=== PATIENT | female | born 1935 | race Caucasian/White ===

== ENCOUNTER → 2016-10-15 | Outpatient (CLI) | payer BC ==
--- NOTE | 2016-10-15 14:06 | MA ---
Screening Digital Mammogram With iCAD Analysis Clinical Indications: Routine screening. 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 Technique: Standard cephalocaudal projections were obtained. Digital breast tomosynthesis was perform ed in the MLO projection with reconstruction at 1.0-mm slice thickness and composite MLO views recons tructed. Skin markers were placed on surgical scars bilaterally. [facility]. Comparison: September 2015, August 2014, August 2013, August 2012, October 2011, October 2010, October 2009, October 2008. Breast density: Type B; Scattered fibroglandular densities. Findings: CAD was reviewed. Architectural change at the right breast lumpectomy site is stable. No ma sses, suspicious calcifications or secondary signs of malignancy are seen. There has been no signific ant change in the appearance of either breast. Vascular calcifications are noted. Impression: Benign post lumpectomy mammography. BI-RADS 2. Recommendation: Routine mammographic screening in one year as long as physical examination is negativ [facility] to the patient. Negative mammography should not preclude additional workup of a clinically suspicious finding. The patient's information is entered into a reminder system with a target due date for her next mammo gram.
== END ==
LOC: FIMAGING 10:27
DX: Z12.31 Encounter for screening mammogram for malignant neoplasm of breast (principal); Z85.3 Personal history of malignant neoplasm of breast
CPT/HCPCS: G0202

== ENCOUNTER → 2017-10-24 | Outpatient (CLI) | payer BC | LOC: FIMAGING 09:12 | PROVIDERS: ATTEND Internal Medicine | DX: Z12.31 Encounter for screening mammogram for malignant neoplasm of breast (principal); Z85.3 Personal history of malignant neoplasm of breast ==

== ENCOUNTER → 2018-08-25 | Outpatient (CLI) | payer BC | LOC: BMCIMAGING 14:15 | PROVIDERS: ATTEND Internal Medicine | DX: I51.7 Cardiomegaly (principal) ==

== ENCOUNTER 2018-10-06 08:37 | Observation (INO) | payer BC ==
[2018-10-06] MEDS ORDERED: NS 1,000 ML IV ONE (08:39)
[2018-10-06 09:17] LABS: PLATELET COUNT 144 10^3/uL (150-400)
[2018-10-06 09:29] LABS: INR 1.25 (0.83-1.16); PROTIME(PATIENT) 15.9 SEC (12.0-15.0)
--- NOTE | 2018-10-06 11:16 | CPEKG ---
Test Reason : OPEN Blood Pressure : / mmHG Vent. Rate : 133 BPM Atrial Rate : 114 BPM P-R Int : 132 ms QRS Dur : 081 ms QT Int : 323 ms P-R-T Axes : 000 080 -54 degrees QTc Int : 481 ms Atrial fibrillation Repolarization abnormality, prob rate related Confirmed by Kd Queen ([id number]) on 10/06/2018 11:15:35 AM Referred By: Confirmed By:Kd Queen
--- NOTE | 2018-10-06 11:27 | PDGENHP ---
History & Physical Chief Complaint: Atrial fibrillation with RVR History of Present Illness: Symptomatic atrial fibrillation rapid ventricular rates that are difficult to control. She has a Biotronik dual-chamber PPM. Relevant Physical Exam: General: A&Ox4, no apparent distress. Respiratory: CTA. Cardiac: Irregularly irregular, S1, S2. Extremities: Pulses 2+ bilaterally, no edema Cardiorespiratory Assessment: Proceed with AV node ablation as planned for today. She and her daughter verbalize understanding regarding the fact that she will be pacemaker dependent following this procedure.
[2018-10-06] MEDS ORDERED: PROMETHAZINE HCL 25 MG/ML INJ IVP PRN (12:49)
[2018-10-06] MEDS ORDERED: HYDROCODONE/APAP 5/325 TAB PO PRN (12:49)
[2018-10-06] MEDS ORDERED: ONDANSETRON 4 MG/2 ML VIAL IVP PRN (12:49)
[2018-10-06] MEDS ORDERED: fentaNYL 100 MCG/2 ML INJ IVP PRN (12:49)
[2018-10-06] MEDS ORDERED: ACETAMINOPHEN 500 MG TAB PO PRN (12:49)
[2018-10-06] MEDS ORDERED: NALOXONE HCL 0.4 MG/ML INJ IVP PRN (12:49)
--- NOTE | 2018-10-06 12:49 | PDANEPAE ---
ANE Past Medical History - Cardiovascular History Hx Hypertension: No Hx Arrhythmias: Yes Hx Coronary Artery / Peripheral Vascular Disease: No Hx Palpitations: Yes - Pulmonary History Hx COPD: No Hx Asthma/Reactive Airway Disease: No Hx Recent Upper Respiratory Infection: No Hx Oxygen in Use at Home: No Hx Sleep Apnea: Yes - Endocrine History Hx Diabetes: No Obesity: mild ANE Review of Systems Review of Systems: - Pacemaker Date Pacemaker Last Checked: 06/09/2016 ANE Patient History - Allergies Allergies/Adverse Reactions: No Known Allergies Allergy (Verified 09/29/18 10:57) - Home Medications Home medications: home medication list seen and reviewed Home Medications: Multivitamins [Multivitamin (*)] 1 each PO DAILY 04/17/16 [Last Taken 10/04/18 08:00] Herbals/Supplements -Info Only 1 ea PO DAILY 06/08/16 [Last Taken 10/04/18 08:00 ] [place]-3 Fatty Acids [Fish Oil 1000 mg (*)] 1,000 mg PO DAILY 06/08/16 [Last Taken 10/04/18 08:00] Ascorbic Acid [Vitamin C 500 mg (*)] 500 mg PO DAILY 09/29/18 [Last Taken 08:00] Cyanocobalamin [Vitamin B12 (*)] 50 mcg PO DAILY 09/29/18 [Last Taken 10/04/18 08:00] Dabigatran Etexilate Mesyl [Pradaxa 150 MG (*)] 150 mg PO BID 09/29/18 [Last Taken 10/04/18 08:00] Metoprolol Succinate 75 mg PO DAILY 09/29/18 [Last Taken 10/04/18 08:00] - NPO status NPO Status: no food or drink >8 hours - Anes Hx Anes Hx: no prior problems - Smoking Hx Smoking Status: Never smoked ANE Labs/Vital Signs - Labs Result Diagrams: 10/06/18 09:00 10/06/18 09:00 - Vital Signs Height: 157 cm Weight: 59 kg ANE Physical Exam - Airway Neck exam: FROM Mallampati Score: Class 2 Mouth exam: normal dental/mouth exam - Pulmonary Pulmonary: no respiratory distress, no rales or rhonchi, clear to auscultation - Cardiovascular Cardiovascular: irregularly irregular, tachycardia - ASA Status ASA Status: III ANE Anesthesia Plan Anesthesia Plan: MAC
[2018-10-06] MEDS ORDERED: fentaNYL 100 MCG/2 ML INJ ONE (12:50)
[2018-10-06] MEDS ORDERED: PROPOFOL 200 MG/20 ML VIAL ONE (12:50)
[2018-10-06] MEDS ORDERED: LIDOCAINE 1% 300 MG/30 ML SDV ONE (13:00)
[2018-10-06] MEDS ORDERED: HEPARIN 10,000 UNIT/10 ML MDV (1,000 UNIT/ML) ONE (13:00)
[2018-10-06] MEDS ORDERED: BUPIVACAINE 0.75% 10 ML SDV ONE (13:01)
[2018-10-06] MEDS ORDERED: GLYCOPYRROLATE 0.2 MG/1 ML VIAL ONE (13:48)
--- NOTE | 2018-10-06 14:13 | EPPROC ---
Electrophysiology Procedure Note: CATHETER MEDIATED ABLATION OF THE AV JUNCTION Procedures performed: 57798 AV node ablation Fluoroscopy INDICATION: Atrial fibrillation, unable to rate control despite maximally tolerated medical therapy Previously placed pacemaker in 2016 Catheters & Anesthesia: The patient arrived in the Electrophysiology Laboratory in the fasting state. Sedation was administered by Dr. Ryder Babb. The right groin and left groin area were prepped and draped in the usual sterile manner. Appropriate non-invasive blood pressure, pulse oximetry and end-tidal CO2 monitoring was established. All catheters were placed percutaneously using the modified Seldinger technique and advanced into position under fluoroscopic guidance). At baseline the patient was noted to be in atrial fibrillation with a mean ventricular rate of 110 bpm. A #7 Haitian deflectable quadrapolar electrode catheter (2mm-5mm-2mm spacing) with 8 mm tip electrode was advanced to the right atrium. RF applications were delivered to the area of the compact AV node, fast AV pardeep pathway and midseptal tricuspid annulus. Cessation of pacing revealed that there was no escape rhythm while pacing at 30 ppm (with glycopyrolate 0.2 mg) Pacemaker implantation was done previously. The pacemaker was programmed to a lower rate of 80 ppm to reduce the risk of sudden associated with torsades de pointes. The lower rate will gradually be reduced to 60 ppm after 1 month . Fluoroscopically pacemaker lead positions were unchanged after procedure Pacemaker thresholds and impedances were unchanged after the procedure The catheters were removed. The patient was transferred to the cardiovascular holding area in stable condition. Vascular access sheaths will be removed in the holding area after 30 min of wait time. There were no apparent complications. CONCLUSIONS: 1. Atrial fibrillation with rapid ventricular response. 2. 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 3. No escape rhythm. 4. No complications. Patient Problems: Problems Problem Status Onset Epistaxis Acute Over-anticoagulated Acute Periorbital ecchymosis of right eye Acute
--- NOTE | 2018-10-06 14:32 | POSTANESTH ---
Post Anesthetic Evaluation Cardiovascular Status: Other, See Comment (Now paced at about 80/min and stable. ) Respiratory Status: Normal, Stable, Similar to Pre-op Cond. Level of Consciousness/Mental Status: Can Participate in Eval, Mildly Sleepy, Arousable Pain Control: Adequate, Prn Tx Ordered Nausea/Vomiting Control: Adequate, Prn Tx Ordered Complications Possibly Related to Anesthesia: None Noted
[2018-10-06] MEDS ORDERED: amLODIPine BESYLATE 5 MG TAB ONE (15:50)
[2018-10-06] MEDS: DABIGATRAN ETEXILATE MESYL 150 MG CAP PO SCH (21:03)
[2018-10-07 04:22] LABS: PLATELET COUNT 133 10^3/uL (150-400)
[2018-10-07 07:39] VITALS: BP 156/87
[2018-10-07] MEDS ORDERED: OMEGA-3 FATTY ACIDS 1,000 MG CAP PO SCH (09:00)
[2018-10-07] MEDS ORDERED: Herbals/Supplements -Info Only PO SCH (09:00)
[2018-10-07] MEDS ORDERED: MULTIVITAMINS 1 EACH TAB PO SCH (09:00)
[2018-10-07] MEDS ORDERED: CYANO/VITAMIN B12 100 MCG TAB PO SCH (09:00)
[2018-10-07] MEDS ORDERED: ASCORBIC ACID 500 MG TAB PO SCH (09:00)
[2018-10-07] MEDS: DABIGATRAN ETEXILATE MESYL 150 MG CAP PO SCH (10:01)
--- NOTE | 2018-10-07 10:59 | CPEKG ---
Test Reason : OPEN Blood Pressure : / mmHG Vent. Rate : 082 BPM Atrial Rate : 088 BPM P-R Int : 174 ms QRS Dur : 133 ms QT Int : 453 ms P-R-T Axes : 000 -80 097 degrees QTc Int : 529 ms Ventricular-paced rhythm Confirmed by Kd Queen ([id number]) on 10/07/2018 10:59:24 AM Referred By: Confirmed By:Kd Queen
--- NOTE | 2018-10-07 11:03 | CPEKG ---
Test Reason : OPEN Blood Pressure : / mmHG Vent. Rate : 087 BPM Atrial Rate : 083 BPM P-R Int : 078 ms QRS Dur : 130 ms QT Int : 441 ms P-R-T Axes : -36 -81 093 degrees QTc Int : 531 ms ventricular-paced rhythm Confirmed by Kd Queen ([id number]) on 10/07/2018 11:03:18 AM Referred By: Confirmed By:Kd Queen
--- NOTE | 2018-10-07 11:35 | ECHO ---
[email or web address] [address] [address] Main: [phone] Fax: Transthoracic Echocardiogram Name: MARRY BROWN MR#: [id number] Study Date: 10/07/2018 Study Time: 10:30 AM Date of : 1935 Age: 82 year(s) Height: 157.5 cm (62 in.) Weight: 58.97 kg (130 lb.) BSA: 1.59 m2 Gender: Female Examination: Echo Indication: F/U post EP study Image Quality: Adequate Contrast: Requested by: Aleks Pinon BP: 156 mmHg/87 mmHg Heart Rate: Rhythm: Indication: F/U post EP study Procedure Staff Day Treatment Clinician/Art Therapist: Esme Ness RDCS Reading Physician: Ryder Nieves MD Requesting Provider: Conclusions: Mild concentric LV hypertrophy. Global hypercontractility of the left ventricle. EF is 75 %. Diastolic dysfunction is present. . There is a pacemaker lead noted in the right ventricle. The left atrium is severely dilated. The right atrium is severely dilated. Mild to moderate mitral regurgitation. Moderate tricuspid regurgitation is present. Measurements: Chambers Valvular Assessment AV/MV Valvular Assessment TV/PV Normal Normal Normal Name Value Range Name Value Range Name Value Range Ao Patricia (MM): 3.3 cm (2.2 cm-3.7 AV Vmax: 1.22 m/s (1 m/s-1.7 TR Vmax: 2.82 mm/s ( - ) cm) m/s) TR PGmax: 32 mmHg ( - ) LVDd (2D): 3.4 cm (3.9 cm-5.3 AV meanP mmHg ( - ) syst. PAP: 37 mmHg ( - ) cm) MV E Vmax: 1.44 m/s ( - ) LVEF (BP): 75 % (>=55 %) MV A Vmax: 0.32 m/s ( - ) MV E/A: 4.50 ( - ) Continued Measurements: Chambers Valvular Assessment AV/MV Valvular Assessment TV/PV Name Value Name Value Name Value LADs: 4.2 cm MV E' Septal: 0.07 m/s CVP (est.): 5 mmHg LADs Lon.7 cm MV E/E' Septal: 22.10 LA Area: 26.3 cm2 MV E/E' Lateral: 17.80 LA Volume: 88 ml Patient: MARRY BROWN Study Date: 10/07/2018 Page 1 of 2 10:30 AM LA Volume Index: 55.3 ml/m2 Additional Vessels Name Value Ao Ascendin.4 cm Inferior Vena Cava: 2.5 cm Findings: Left Ventricle: Normal size left ventricle. Mild concentric LV hypertrophy. Global hypercontractility of the left ventricle. EF is 75 %. No regional wall motion abnormality. Diastolic dysfunction is present. . Right Ventricle: Normal size right ventricle. There is a pacemaker lead noted in the right ventricle. Left Atrium: The left atrium is severely dilated. Right Atrium: The right atrium is severely dilated. Mitral Valve: Moderate-severe mitral annular calcification. Mild to moderate mitral regurgitation. Aortic Valve: The aortic valve is normal in appearance and function. The aortic valve is tri-leaflet. Trivial aortic valve regurgitation. Tricuspid Valve: The tricuspid valve is normal in appearance and function. Moderate tricuspid regurgitation is present. Pulmonic Valve: The pulmonic valve is normal in appearance and function. Trivial pulmonic valve regurgitation. Aorta: The aorta is normal. Pericardium: No pericardial effusion. There is pericardial fat. (No Signature Object) Patient: MARRY BROWN Study Date: 10/07/2018 Page 2 of 2 10:30 AM D:_[id number]
--- NOTE | 2018-10-07 15:31 | ASDISCHSUM ---
Discharge Information Plan Status:Home with No Needs Medically Cleared to Leave:10/06/2018 Discharge Date:10/07/2018 02:00 PM CM D/C Disposition:Home, Routine, Self-Care ADT D/C Disposition:Home, Routine, Self-Care Projected Discharge Date:10/07/2018 02:00 PM Transportation at D/C: Discharge Delay Reason: Follow-Up Date:10/07/2018 02:00 PM Discharge Slot: Final Diagnosis: Placement Information Patient Contact Information Contact Name:ROSAURA Relationship:Daughter Address: Work Phone: City: [facility] Phone: State/[employer] Code: Email: Financial Information Financial Class:BCOP Primary Plan Desc:[employer]AN Primary Plan Number:[id number] Secondary Plan Desc: Secondary Plan Number: Assessment Information Intervention Information
--- NOTE | 2018-10-07 18:57 | GDS ---
SUPERVISING SYSTEMS CHECKOUT MECHANIC: Ryder Nieves MD ADMISSION DIAGNOSES: 1. Atrial fibrillation. 2. Permanent pacemaker. DISCHARGE DIAGNOSES: Atrial fibrillation status post AV node ablation. PROCEDURES PERFORMED: 1. Electrocardiogram. 2. Echocardiogram. 3. AV node ablation. HOSPITAL COURSE: Patient presented October 06, 2018, for AV node ablation in the setting of atrial fibrillation with rapid ventricular rates and increasing activity intolerance. She underwent AV node ablation with Dr. Ryder Nieves without intra procedure complications. She has done very well in the postprocedure setting and her device interrogation this morning demonstrates underlying junctional rhythm at 40 beats per minute. She reports feeling very well this morning and has been ambulating around her room without issue. She is appropriate and stable for discharge home today. CURRENT PHYSICAL EXAMINATION: GENERAL: She is alert and oriented x4. No apparent distress. VITAL SIGNS: Blood pressure 134/88, respiratory rate 17, SpO2 94% on room air. Heart rate 84, temp 36.6. RESPIRATORY/LUNGS: Clear to auscultation without adventitious breath sounds. CARDIAC: Normal S1, S2. No S3, S4, or murmurs. Rhythm is regular. ABDOMEN: Normoactive bowel sounds times all 4 quadrants. No masses or tenderness. ABDOMEN: Soft to palpation. SKIN: [place], warm, dry without cyanosis, clubbing, or peripheral edema. EXTREMITIES : Right pursestring suture removed intact without evidence of hematoma or redness, oozing, swelling or warmth. Pulses are 2+ bilaterally. No edema. LABORATORY STUDIES: Drawn today. CBC and BMP are stable compared to preprocedure labs. Troponin is 0.728, this is to be expected in the postprocedure setting. PROCEDURES: Electrophysiology study and AV node ablation as mentioned above. Preliminary echocardiogram done this morning demonstrates normal left ventricular systolic function without new wall motion abnormalities or pericardial effusion. Electrocardiogram this morning demonstrates a ventricular paced rhythm without new abnormalities. DISCHARGE DISPOSITION: Patient will be discharged home in stable condition. She is under activity restrictions as well. DISCHARGE MEDICATIONS: Please see discharge medication reconciliation sheet for full details. Please note the patient has been restarted on her Pradaxa and we have discontinued her metoprolol at this time. For blood pressure management, we have started her on Norvasc 10 mg daily. DISCHARGE INSTRUCTIONS: Post AV node ablation instructions reviewed with the patient and her daughter in detail. We discussed activity restrictions including lifting no more than 10 pounds and avoidance of submerged bathing for 10 days. She will get up and walk around every 45 minutes for 45 days. We also reviewed bleeding precautions, medication compliance, monitoring for signs and symptoms of infection, and monitoring for sustained arrhythmia or abnormal new or concerning symptoms. She will follow up with her primary care provider or Dr. Jose Enrique Serrano for further evaluation of her blood pressure in 2-4 weeks. She will follow up in our clinic in 4 weeks for postprocedure followup and she has remote device interrogation scheduled on October 13. At the time of discharge, the patient and her daughter verbalized understanding regarding all discharge instructions without questions or concerns. She will contact the clinic if she has any new or concerning symptoms prior to her upcoming visit. /[id number]/MODL MTDD
== END 2018-10-07 14:00 | disposition home or self-care (01) ==
LOC: FCATH 08:37 → F2W 14:03
PROVIDERS: ADMIT Registered Nurse; ATTEND Internal Medicine Cardiovascular Disease
PROC: 5A1213Z Performance of Cardiac Pacing, Intermittent (ICD-10-PCS; principal; 2018-10-06)
PROC: 02563ZZ Destruction of Right Atrium, Percutaneous Approach (ICD-10-PCS; principal; 2018-10-06)
PROC: B2141ZZ Fluoroscopy of Right Heart using Low Osmolar Contrast (ICD-10-PCS; principal; 2018-10-06)
PROC: 4A0234Z Measurement of Cardiac Electrical Activity, Percutaneous Approach (ICD-10-PCS; principal; 2018-10-06)
DX: I48.91 Unspecified atrial fibrillation (principal); Z95.0 Presence of cardiac pacemaker
CPT/HCPCS: 93005; 93306; 93619; 93650; G0378; C1732; J1644; J2704; J3010

== ENCOUNTER → 2018-11-12 | Outpatient (CLI) | payer BC | LOC: FIMAGING 08:53 | PROVIDERS: ATTEND Internal Medicine | DX: Z12.31 Encounter for screening mammogram for malignant neoplasm of breast (principal); Z85.3 Personal history of malignant neoplasm of breast ==